=== PATIENT | male | born 1980 | race Hispanic/Latino ===

== ENCOUNTER 2016-11-03 12:37 | Emergency (ER) | payer OTHER ==
[2016-11-03 12:50] VITALS: BP 146/90; TEMP 97.8; O2SAT 96
--- NOTE | 2016-11-03 13:28 | ED.PDOC ---
History of Present Illness - General Chief Complaint: General Stated Complaint: right sided facial pain,dizziness Time Seen by Provider: 11/03/16 13:21 Source: patient, EMS notes reviewed Exam Limitations: no limitations - History of Present Illness Initial Comments: Vish Irizarry 36 y/o male stated that he had been having sharp pains on right side of face since yesterday going to his forehead sometimes make his right eye in tears Timing/Duration: other - 2 days Improving Factors: nothing Worsening Factors: other - opening jaw Associated Symptoms: denies symptoms Allergies/Adverse Reactions: Allergies NO KNOWN ALLERGY Allergy (Verified 11/03/16 12:50) Home Medications: Ambulatory Orders Acetaminophen W/ Codeine [Tylenol W/ CODEINE #3] 2 ea PO TID PRN #20 11/03/16 Valacyclovir HCl [Valtrex] 1 gm PO TID #20 tab 11/03/16 predniSONE 20 mg PO BID #20 tab 11/03/16 Review of Systems - Review of Systems Constitutional: States: no symptoms reported EENTM: States: see HPI Respiratory: States: no symptoms reported Cardiology: States: no symptoms reported Gastrointestinal/Abdominal: States: no symptoms reported Genitourinary: States: no symptoms reported Musculoskeletal: States: no symptoms reported Skin: States: no symptoms reported Neurological: States: no symptoms reported Past Medical History (General) - Patient Medical History Hx Congestive Heart Failure: No Hx Diabetes: No Surgical History: no surgical history - Vaccination History Hx Influenza Vaccination: No - Social History Hx Tobacco Use: No Family Medical History - Family History Father Family History: Unknown Living Status: Unknown Physical Exam - Physical Exam General Appearance: Alert, Comfortable, No apparent distress Eye Exam: bilateral normal, bilateral other - able to close/open both eyes Ears, Nose, Throat: hearing grossly normal, normal ENT inspection, normal pharynx, other - tenderness right tmj area Neck: non-tender, full range of motion, supple Respiratory: chest non-tender, lungs clear Cardiovascular/Chest: normal peripheral pulses, regular rate, rhythm, no murmur Peripheral Pulses: radial,right: 1+, radial,left: 1+ Gastrointestinal/Abdominal: normal bowel sounds, non tender, soft Neurologic: no motor/sensory deficits, alert, normal mood/affect, oriented x 3 Skin Exam: normal color, warm/dry Lymphatic: no adenopathy Departure - Departure Clinical Impression: Acute facial pain Time of Disposition: 13:39 Disposition: Discharge to Home or Self Care Condition: Good Departure Forms: ED Discharge - Pt. Copy, Patient Portal Self Enrollment Instructions: DI for Temporomandibular Disorder, Temporomandibular Disorder, TMJ Syndrome (Alternative Therapy), Cary's Palsy, Cary's Palsy (Alternative Therapy) Prescriptions: Acetaminophen W/ Codeine [Tylenol W/ CODEINE #3] 2 ea PO TID PRN #20 PRN Reason: Pain predniSONE 20 mg PO BID #20 tab Valacyclovir HCl [Valtrex] 1 gm PO TID #20 tab Home Medications: Ambulatory Orders Acetaminophen W/ Codeine [Tylenol W/ CODEINE #3] 2 ea PO TID PRN #20 11/03/16 Valacyclovir HCl [Valtrex] 1 gm PO TID #20 tab 11/03/16 predniSONE 20 mg PO BID #20 tab 11/03/16
== END 2016-11-03 13:52 | disposition home or self-care (01) ==
LOC: ER 12:37
DX: R51 Headache (principal)

== ENCOUNTER 2016-12-07 22:41 | Emergency (ER) | payer OTHER ==
[2016-12-07 22:52] VITALS: BP 149/91; TEMP 98.6; O2SAT 97
--- NOTE | 2016-12-07 23:15 | ED.PDOC ---
History of Present Illness - General Chief Complaint: ENT Problem Stated Complaint: Right jaw pain Time Seen by Provider: 12/07/16 22:43 Source: patient Exam Limitations: no limitations - History of Present Illness Initial Comments: Vish Irizarry 36 y/o male seen here last month for jaw pain was initially diagnosed with possible canela palsy and tmj got the medicine and continued to have pain and seen another md was diagnosed with dental abscess prescribed antibiotics for 10 days got better and not able to follow up with his primary md due to his work. Timing/Duration: gradual EENT Location: dental Prearrival Treatment: no prearrival treatment Presenting Symptoms: see hpi Improving Factors: rest Worsening Factors: eating Associated Symptoms: denies symptoms Allergies/Adverse Reactions: Allergies NO KNOWN ALLERGY Allergy (Verified 11/03/16 12:50) Home Medications: Ambulatory Orders Clindamycin HCl 300 mg PO BID #20 cap 12/07/16 Naproxen [Naprosyn] 500 mg PO BID #20 tab 12/07/16 Review of Systems - Review of Systems Constitutional: States: no symptoms reported EENTM: States: see HPI Respiratory: States: no symptoms reported Cardiology: States: see HPI Gastrointestinal/Abdominal: States: no symptoms reported Genitourinary: States: no symptoms reported Past Medical History (General) - Patient Medical History Hx Seizures: No Hx Stroke: No Hx Dementia: No Hx Asthma: No Hx of COPD: No Hx Cardiac Disorders: No Hx Congestive Heart Failure: No Hx Pacemaker: No Hx Hypertension: No Hx Thyroid Disease: No Hx Diabetes: No Hx Gastroesophageal Reflux: No Hx Renal Disease: No Hx Cancer: No Hx of HIV: No Hx Hepatitis C: No Hx MRSA: No Surgical History: no surgical history - Vaccination History Hx Tetanus, Diphtheria Vaccination: Yes Hx Influenza Vaccination: No Hx Pneumococcal Vaccination: No Immunizations Up to Date: Yes - Social History Hx Tobacco Use: No Hx Alcohol Use: Yes Family Medical History - Family History Father Family History: Unknown Living Status: Unknown Physical Exam - Physical Exam General Appearance: Alert, No apparent distress Eye Exam: bilateral normal Ear Exam: bilateral ear: auricle normal, canal normal, TM normal Nasal Exam: normal inspection Throat Exam: pharynx normal, dental tenderness - right upper distal molar Neck: supple Cardiovascular/Respiratory: regular rate, rhythm, normal peripheral pulses, normal breath sounds Abdominal Exam: non-tender, no organomegaly Progress - Progress Progress: 12/07/16 23:17 Vital Signs 12/07/16 22:49 Temperature 98.6 F Pulse Rate [ 100 H Right radial] Respiratory 18 Rate Blood Pressure 149/91 [Left Arm] O2 Sat by Pulse 97 Oximetry Departure - Departure Clinical Impression: Pain due to dental caries, Acute pulpitis Time of Disposition: 23:19 Disposition: Discharge to Home or Self Care Condition: Good Departure Forms: ED Discharge - Pt. Copy, Patient Portal Self Enrollment Instructions: DI for Tooth Decay Diet: other - SOFT DIET UNTIL BETTER Prescriptions: Clindamycin HCl 300 mg PO BID #20 cap Naproxen [Naprosyn] 500 mg PO BID #20 tab Home Medications: Ambulatory Orders Clindamycin HCl 300 mg PO BID #20 cap 12/07/16 Naproxen [Naprosyn] 500 mg PO BID #20 tab 12/07/16 Additional Instructions: NEED TO FOLLOW UP WITH DENTIST 12/11 2016 patient to call for appointment;[facility] Reuben-[phone];[facility]-[phone]
[2016-12-07] MEDS ORDERED: CLINDAMYCIN HCL CAP 150 MG CAP PO ONE (23:17)
[2016-12-07] MEDS ORDERED: HYDROCOD/APAP 7.5/325 (ER DISP) #3 TAB PO ONE (23:18)
== END 2016-12-07 23:31 | disposition home or self-care (01) ==
LOC: ER 22:41
DX: K02.9 Dental caries, unspecified (principal); K04.01 Reversible pulpitis